=== PATIENT | female | born 1945 | race Asian ===

== ENCOUNTER 2017-12-07 06:09 | Day surgery (SDC) | payer OTHER ==
[2017-12-06 13:56] VITALS: BMI 31.1
[2017-12-07] MEDS ORDERED: EPINEPHrine 1:1,000 1 MG/1 ML - 30ML VIAL (INJECTION) ONE (07:03)
[2017-12-07] MEDS ORDERED: DEXAMETHASONE SOD PHOSPHATE/PF 10 MG/ML SDV ONE (07:17)
[2017-12-07] MEDS ORDERED: ROPIVACAINE HCL 0.5% 30ML VIAL ONE (07:17)
[2017-12-07] MEDS ORDERED: MIDAZOLAM HCL 2 MG/2 ML SINGLE DOSE VIAL ONE (07:17)
[2017-12-07] MEDS ORDERED: MEPIVACAINE HCL 2% 20 ML VIAL ONE (07:17)
[2017-12-07] MEDS ORDERED: PROPOFOL 20 ML ONE ×3 (07:46)
[2017-12-07] MEDS ORDERED: SUCCINYLCHOLINE CHLORIDE 200 MG/10 ML VIAL ONE (07:47)
[2017-12-07] MEDS ORDERED: ONDANSETRON 4 MG/2 ML VIAL ONE (07:50)
[2017-12-07] MEDS ORDERED: DEXAMETHASONE SOD PHOSPHATE 4 MG/1 ML VIAL ONE (07:50)
[2017-12-07] MEDS ORDERED: ceFAZolin SODIUM 1 GM VIAL ONE (07:50)
[2017-12-07] MEDS ORDERED: oxyCODONE HCL 5 MG TABLET PO PRN ×2 (08:17)
[2017-12-07] MEDS ORDERED: ONDANSETRON 4 MG/2 ML VIAL IVPUSH PRN (08:17)
[2017-12-07] MEDS ORDERED: PROMETHAZINE HCL 25 MG/1 ML VIAL IVPUSH PRN (08:17)
[2017-12-07 11:04] VITALS: PULSE 78; TEMP 97.4
[2017-12-07 11:20] VITALS: BP 148/63
--- NOTE | 2017-12-08 19:15 | OP ---
DATE OF OPERATION: 12/07/2017 PREOPERATIVE DIAGNOSIS: Left shoulder rotator cuff tear. POSTOPERATIVE DIAGNOSIS: 1. Left shoulder supraspinatus rotator cuff tear. 2. Left shoulder partial subscapularis tear. 3. Proximal biceps tendon partial tear. 4. Glenohumeral joint osteoarthritis. 5. Subacromial impingement with anterior inferior subacromial spur. OPERATIVE PROCEDURE: 1. Left shoulder operative arthroscopy with repair of subscapularis and supraspinatus rotator cuff tears. 2. Left shoulder proximal biceps tenotomy. 3. Left shoulder arthroscopic subacromial decompression with anterior-inferior acromioplasty. SURGEON: Ryan Alaniz M.D. BUSINESS CONTINUITY MANAGEMENT DIRECTOR: Phillip Grace M.D. ANESTHESIA: Regional. COMPLICATIONS: None. ESTIMATED BLOOD LOSS: Minimal. INDICATION FOR PROCEDURE: The patient is a 72-year-old female who presented with the above findings. She was indicated for operative treatment. She decided to proceed surgically, and the risks, benefits, and alternatives were discussed at length with her and her family at length. This was again discussed immediately prior to the surgery with the patient and family and dry heat cabinet attendant. PROCEDURE: Patient is given a regional anesthesia by the anesthesiologist and sedation as well. She is placed in the beach chair position with all points of contact well padded and in line cervical position maintained throughout the procedure. Left shoulder was prepped and draped in the usual sterile fashion. Standard arthroscopy was performed through posterior, lateral, and anterior portals. Skin incisions only were made, and blunt dissection was formed down to the joint capsule. Glenohumeral joint was first observed and found to have moderate synovitis and moderate glenohumeral joint chondromalacia. Significant fraying of the anterior and superior labrum as well as the posterior labrum were found, but no detachment of labrum was noted. This was debrided with mechanical shaver as well as debriding the synovitis. Subscapularis was found to have a significant partial tear and was debrided down to healthy tissue. This was in anticipation of repair. The biceps anchor was intact, however the proximal biceps had significant tearing proximally, both longitudinally and partial tearing transversely. It was decided it is not in the best interest of this patient, and the tendon was released at its base and allowed to retract into the arm. The supraspinatus was found to be torn anteriorly and retracted approximately 1 cm. The anterior-posterior dimension of the tear was approximately 1 cm. Infraspinatus was intact. This was debrided along with the greater tuberosity in preparation for repair. While in the glenohumeral joint, the subscapularis was repaired using Arthrex Fiberwire suture and a Swivelock anchor. The scope was then introduced into the subacromial space where a significant bursitis was noted, and a bursectomy was performed. A large anterior inferior subacromial spur with a very tight subacromial space was noted, and anterior inferior acromioplasty was performed. Rotator cuff was again noted on the bursal surface and debrided. This was then repaired using an Arthrex Fibertape suture, bringing it down to the greater tuberosity with a Swivelock anchor. This was augmented with additional sutures in side to side fashion and to the anchor itself. This provided secure, stable repair of both the subscapularis and the supraspinatus. Shoulder was taken through range of motion, and there was no tension on the repair. The wounds were irrigated with saline, repaired with 5-0 nylon suture, sterile dressings were applied, sling was placed, patient was reversed from anesthesia and brought to recovery in good condition. She tolerated the procedure well. Phillip Grace, the visual merchandising assistant, was integral throughout the procedure. Procedure could not have been performed without a skilled operative visual merchandising assistant. RYAN ALANIZ M.D. MARTIN/[id number]
== END 2017-12-07 11:30 | disposition home or self-care (01) ==
LOC: FASU 06:09
PROVIDERS: ATTEND Orthopaedic Surgery Hand Surgery
PROC: 0RQK4ZZ Repair Left Shoulder Joint, Percutaneous Endoscopic Approach (ICD-10-PCS; 2017-12-07)
PROC: 0LQ24ZZ Repair Left Shoulder Tendon, Percutaneous Endoscopic Approach (ICD-10-PCS; principal; 2017-12-07 07:30)
PROC: 0RNK4ZZ Release Left Shoulder Joint, Percutaneous Endoscopic Approach (ICD-10-PCS; 2017-12-07 07:30)
DX: M75.122 Complete rotator cuff tear or rupture of left shoulder, not specified as traumatic (principal); M66.812 Spontaneous rupture of other tendons, left shoulder; M19.012 Primary osteoarthritis, left shoulder; M75.42 Impingement syndrome of left shoulder; M25.712 Osteophyte, left shoulder